=== PATIENT | male | born 1985 | race Caucasian/White ===

== ENCOUNTER 2018-04-28 13:28 | Emergency (ER) | payer MEDICAID, OTHER ==
[~2018-04-28] VITALS: Ht 175.3 cm; Wt 82.0 kg
[~2018-04-28 13:28] MED LIST: ADVIL; [UNRECOGNIZED DRUG - REMARK]
[2018-04-28] MEDS ORDERED: TETRACAINE 0.5% OPHTH DROPS 4ML OP ONE (14:45)
[2018-04-28] MEDS ORDERED: FLUORESCEIN SODIUM 1MG/STRIP OP ONE (14:45)
[2018-04-28] MEDS ORDERED: IBUPROFEN 400MG TABLET PO ONE (15:30)
[2018-04-28 16:00] VITALS: BP 108/82
== END 2018-04-28 16:49 | disposition home or self-care (01) ==
LOC: ER 13:28
DX: L03.213 Periorbital cellulitis (principal); F12.10 Cannabis abuse, uncomplicated
CPT/HCPCS: 70486; 82962; 99284; Z7610

== ENCOUNTER 2019-10-15 17:15 | Emergency (ER) | payer MEDICAID, OTHER ==
[~2019-10-15] VITALS: Ht 175.3 cm; Wt 74.0 kg
[2019-10-15] MEDS ORDERED: IBUPROFEN 800MG TABLET PO ONE (19:15)
[2019-10-15 19:41] VITALS: BP 114/64
== END 2019-10-15 19:44 | disposition home or self-care (01) ==
LOC: ER 17:15
DX: L03.317 Cellulitis of buttock (principal); R03.0 Elevated blood-pressure reading, without diagnosis of hypertension; F12.90 Cannabis use, unspecified, uncomplicated
CPT/HCPCS: 99283